=== PATIENT | male | born 1980 | race Caucasian/White ===

== ENCOUNTER 2017-10-02 16:29 | Emergency (ER) | payer SELFPAY ==
[2017-10-02] MEDS: ASPIRIN 81 MG CHEWABLE TABLET PO ONE (17:29)
--- NOTE | 2017-10-02 17:31 | Emergency Department Record ---
History of Present Illness - General Chief Complaint: Chest Pain Stated Complaint: LT SIDE CHEST PAIN X3 DAYS Time Seen by Provider: 10/02/17 17:04 Source: Patient Mode of Arrival: Ambulatory Limitations: No limitations - History of Present Illness Initial Comments: pt has had cp for 3 days on the l that is sharp and worsens w inspiration. he has a productive green cough. MD Complaint: Chest pain Onset/Timin -: Days(s) Onset: During exertion Pain Location: Left chest Pain Radiation: LUE Severity: Moderate Severity scale (1-10): 7 Quality: Aching Consistency: Constant Improves With: Nothing Worsens With: Exertion, Inspiration, Movement - Related Data Previous Rx's Medication Instructions Recorded Azithromycin [Zithromax] 250 mg PO DAILY #6 tab 10/02/17 Allergies Allergy/AdvReac Type Severity Reaction Status Date / Time No Known Drug Allergies Allergy Verified 10/02/17 16:45 Travel Screening - Travel/Exposure Within Last 30 Days Have you traveled within the last 30 days?: No - Travel/Exposure Within Last Year Have you traveled outside the [place] in the last year?: No - Additonal Travel Details Have you been exposed to anyone with a communicable illness?: No - Travel Symptoms Symptom Screening: None Review of Systems Reviewed: No additional complaints except as noted below Constitutional: Reports: As per HPI. Denies: Chills, Fever, Malaise, Night sweats, Weakness, Weight change Eyes: Reports: As per HPI. Denies: Eye discharge, Eye pain, Photophobia, Vision change ENT: Reports: As per HPI. Denies: Congestion, Dental pain, Ear pain, Epistaxis , Hearing loss, Throat pain Respiratory: Reports: As per HPI. Denies: Cough, Dyspnea, Hemoptysis, Stridor, Wheezes Cardiovascular: Reports: As per HPI, Chest pain. Denies: Arrhythmia, Dyspnea on exertion, Edema, Murmurs, Orthopnea, Palpitations, Paroxysmal nocturnal dyspnea, Rheumatic Fever, Syncope Endocrine: Reports: As per HPI. Denies: Fatigue, Heat or cold intolerance, Polydipsia, Polyuria Gastrointestinal: Reports: As per HPI. Denies: Abdominal pain, Constipation, Diarrhea, Hematemesis, Hematochezia, Melena, Nausea, Vomiting Genitourinary: Reports: As per HPI. Denies: Dysuria, Frequency, Hematuria, Incontinence, Retention, Testicular pain, Testicular mass, Urgency Musculoskeletal: Reports: As per HPI. Denies: Arthralgia, Back pain, Gout, Joint swelling, Myalgia, Neck pain Skin: Reports: As per HPI. Denies: Bruising, Change in color, Change in hair/ nails, Lesions, Pruritus, Rash Neurological: Reports: As per HPI. Denies: Abnormal gait, Confusion, Headache, Numbness, Paresthesias, Seizure, Tingling, Tremors, Vertigo, Weakness Psychiatric: Reports: As per HPI. Denies: Anxiety, Auditory hallucinations, Depression, Homicidal thoughts, Suicidal thoughts, Visual hallucinations Hematological/Lymphatic: Reports: As per HPI. Denies: Anemia, Blood Clots, Easy bleeding, Easy bruising, Swollen glands Past Medical History - SOCIAL HISTORY Smoking Status: Current every day smoker Alcohol Use: Occasional Drug Use: Occasional Drug Use Detail:: Marijuana, Opiates - RESPIRATORY Hx Respiratory Disorders: No - CARDIOVASCULAR Hx Heart Attack: Yes (age 20 was told had heart attck) - NEURO Hx Headaches: Yes - GI Hx GI Disorders: No - Hx Genitourinary Disorders: No - ENDOCRINE Hx Diabetes: No Hx Thyroid Disease: No - MUSCULOSKELETAL Hx Musculoskeletal Disorders: No - PSYCH Hx Psych Problems: No - HEMATOLOGY/ONCOLOGY Hx Hematology/Oncology Disorders: No Family Medical History Any Significant Family History?: Yes Hx Diabetes: Grandparents Physical Exam - General General Appearance: Alert, Oriented x3, Cooperative, Mild distress - Head Head exam: Normal inspection - Eye Eye exam: Normal appearance, PERRL, EOMI Pupils: Normal accommodation - ENT ENT exam: Normal exam, Mucous membranes moist, Normal external ear exam, Normal orophraynx Ear exam: Normal external inspection. negative: External canal tenderness Nasal Exam: Normal inspection. negative: Discharge, Sinus tenderness Mouth exam: Normal external inspection, Tongue normal Teeth exam: Normal inspection. negative: Dental caries Throat exam: Normal inspection. negative: Tonsillar erythema, Tonsillar exudate - Neck Neck exam: Normal inspection, Full ROM. negative: Tenderness - Respiratory Respiratory exam: Normal lung sounds bilaterally, Chest wall tenderness. negative: Respiratory distress - Cardiovascular Cardiovascular Exam: Regular rate, Normal rhythm, Normal heart sounds - GI/Abdominal GI/Abdominal exam: Soft, Normal bowel sounds. negative: Tenderness - Rectal Rectal exam: Deferred - exam: Deferred - Extremities Extremities exam: Normal inspection, Full ROM, Normal capillary refill. negative: Tenderness - Back Back exam: Reports: Normal inspection, Full ROM. Denies: Muscle spasm, Rash noted, Tenderness - Neurological Neurological exam: Alert, CN II-XII intact, Normal gait, Oriented X3 - Psychiatric Psychiatric exam: Normal affect, Normal mood - Skin Skin exam: Dry, Intact, Normal color, Warm Course Vital Signs 10/02/17 16:39 Temperature 98.7 F Pulse Rate 92 H Respiratory 16 Rate Blood Pressure 151/90 Pulse Ox 100 - Reevaluation(s) Reevaluation #1: 10/02/17 19:21 pt feels better Reevaluation #2: 10/02/17 19:21 pt educated to stop smoking Medical Decision Making - Lab Data Result diagrams: 10/02/17 16:48 10/02/17 16:48 Disposition Disposition: Discharge Clinical Impression: Bronchitis, Pleurisy Emphysema of lung Qualifiers: Emphysema type: unspecified Qualified Code(s): J43.9 - Emphysema, unspecified Disposition: Home, Self-Care Condition: (1) Good Instructions: Acute Bronchitis (ED), Pleurisy (ED), Emphysema (ED), How to Stop Smoking (ED) Additional Instructions: follow up with family doctor. return sooner if worse. Prescriptions: Azithromycin [Zithromax] 250 mg PO DAILY #6 tab Forms: Patient Portal Access Quality - Quality Measures Quality Measures: N/A - Blood Pressure Screening Does Patient Have Any of the Following: No Blood Pressure Classification: Hypertensive Reading Systolic Measurement: 151 Diastolic Measurement: 90 Screening for High Blood Pressure: < First Hypertensive BP, F/U Documented > [ [id number]] First Hypertensive Follow-up Interventions: Follow-up with rescreen GT 1 day and LT 4 weeks.
[2017-10-02 17:42] LABS: BASO % 0.3 % (0-6); EOS % 1.2 % (0-6); GRAN % 53.5 % (47-80); HEMATOCRIT 39.1 % (42.0-52.0); HEMOGLOBIN 13.7 gm/dl (14.0-18.0); LYMPH % 32.9 % (16-45); MEAN PLATELET VOLUME 9.3 fl (7.4-10.4); MONO % 12.1 % (0-9); PLATELET COUNT 369 K/uL (130-400); RED BLOOD COUNT 3.95 M/uL (4.40-5.70); RED CELL DISTRIBUTION WIDTH 14.9 % (11.5-14.5); WHITE BLOOD COUNT W/O DIFF 7.4 K/uL (4.2-12.2)
[2017-10-02 17:49] LABS: MEAN CORPUSCULAR HEMOGLOBIN 34.6 pg (27-33)
[2017-10-02 17:51] LABS: BLOOD UREA NITROGEN 19 mg/dL (6-20); CREATININE 0.6 mg/dL (0.7-1.2); EST GLOMERULAR FILTRATION RATE > 60 mL/min
[2017-10-02 17:54] LABS: GLUCOSE,RANDOM 80 mg/dL (74-109)
[2017-10-02 17:56] LABS: CREATINE PHOSPHOKINASE 214 U/L (39-308)
[2017-10-02 17:58] LABS: CKMB 3.1 ng/mL (<6.73)
[2017-10-02] MEDS: KETOROLAC 30 MG/ML VIAL IVP ONE (19:27)
--- NOTE | 2017-10-03 11:39 | RADIOLOGY REPORT ---
EXAM: CHEST 2 VIEWS HISTORY: LEFT MID CHEST PAIN AND DYSPNEA FOR FIVE DAYS. TECHNIQUE: Chest, two-view. COMPARISON: None. FINDINGS: Heart is not enlarged. Lungs and pleural spaces are clear. IMPRESSION: NO ACUTE CARDIOPULMONARY ABNORMALITY. JOB NUMBER: [id number] MTDD
--- NOTE | 2017-10-03 12:42 | CT ANGIOGRAM REPORT ---
DATE: 10/02/2017. EXAM: CT ANGIOGRAM OF THE CHEST. HISTORY: Cough, congestion, left-sided chest pain. TECHNIQUE: Routine CT angiography images obtained following intravenous administration of contrast. The amount and type of contrast can be found in the medical record. The 3D/MIP images were obtained for further assessment. FINDINGS: The heart is not enlarged. No pericardial effusion. The aorta enhances normally with contrast. No central filling defects in the pulmonary arteries to suggest acute pulmonary embolus. There is mild centrilobular and paraseptal emphysema. Note is made of peribronchial thickening which can be seen with bronchitis. The lungs are without focal consolidation, pleural effusion, or pneumothorax. The visualized upper abdomen demonstrates splenic granulomatous calcifications. No acute osseous abnormality. IMPRESSION: 1. NO EVIDENT PULMONARY EMBOLUS. 2. PERIBRONCHIAL THICKENING COMPATIBLE WITH BRONCHITIS. 3. THERE APPEARS TO BE MILD PARASEPTAL AND CENTRILOBULAR EMPHYSEMA. JOB NUMBER: [id number] MTDD
== END 2017-10-02 19:42 | disposition home or self-care (01) ==
LOC: ER 16:29
DX: J20.9 Acute bronchitis, unspecified (principal); R07.89 Other chest pain; R09.1 Pleurisy; R79.89 Other specified abnormal findings of blood chemistry; R06.00 Dyspnea, unspecified; I25.2 Old myocardial infarction; F17.210 Nicotine dependence, cigarettes, uncomplicated
CPT/HCPCS: 71046; 71275; 80048; 82550; 82553; 84484; 85025; 85379; 93005; 93010; 96374; 99284; J1885